=== PATIENT | male | born 1990 | race Caucasian/White ===

== ENCOUNTER 2024-04-28 20:28 | Emergency (ER) | payer OTHER ==
[~2024-04-28] VITALS: Ht 182.9 cm; Wt 87.5 kg
[2024-04-28 20:51] VITALS: BP 140/81
== END 2024-04-28 22:24 | disposition home or self-care (01) ==
LOC: ER 20:28
DX: M25.561 Pain in right knee (principal)
CPT/HCPCS: 73562-RT; 99283-25